=== PATIENT | female | born 1970 | race Hispanic/Latino ===

== ENCOUNTER 2019-04-25 11:56 | Outpatient (CLI) | payer OTHER ==
--- NOTE | 2019-04-25 12:58 | XRay Report ---
RIGHT KNEE 2 VIEWS INDICATION: R KNEE PAIN. COMPARISON: No relevant prior imaging study available. 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 No joint effusion, no acute skeletal abnor mality. IMPRESSION: 1. No acute findings. CERVICAL SPINE 3 VIEWS INDICATION: Cervical neck pain. COMPARISON: No relevant prior imaging study available. FINDINGS: ACDF at C5-6 has a satisfactory postoperative appearance. There is mild diffuse discogenic degenerati ve change. No prevertebral soft tissue swelling. No significant listhesis. IMPRESSION: 1. No acute findings. LUMBAR SPINE 2 VIEWS INDICATION: Low back pain. COMPARISON: No relevant prior imaging study available. FINDINGS: Lumbar vertebral body height is maintained. There is mild discogenic degenerative change of the lower thoracic and upper/mid lumbar spine. Alignment is within normal limits. SI joints are unremarkable. IMPRESSION: 1. No acute findings. Signer Name: Carl Bobby MD Signed: 04/25/2019 12:54 PM Workstation Name: [id number]
== END 2019-04-25 11:57 | disposition home or self-care (01) ==
LOC: XRAY 11:56
PROVIDERS: ATTEND Internal Medicine
DX: M17.11 Unilateral primary osteoarthritis, right knee (principal); M47.812 Spondylosis without myelopathy or radiculopathy, cervical region; M47.815 Spondylosis without myelopathy or radiculopathy, thoracolumbar region
CPT/HCPCS: 72040; 72100